=== PATIENT | female | born 1965 | race Caucasian/White ===

== ENCOUNTER 2017-06-02 06:33 | Emergency (ER) | payer BC ==
[2017-06-02 06:54] VITALS: BP 182/95; BMI 32.2
[2017-06-02] MEDS ORDERED: TORADOL 60 MG VIAL ONE (07:07)
[2017-06-02] MEDS ORDERED: TORADOL 60 MG VIAL IM ONE (07:08)
--- NOTE | 2017-06-02 07:12 | DR.GENAD ---
HPI - PCP Primary Care Physician: danni - Complaint/Symptoms Chief Complaint Doctors Comments: Patient c/o left ankle pain, 10/10, sharp, worse with ambulation, twisted when stepped of porch. Chief Complaint:: " I stepped off the deck into a hole. My foot twisted,I fell, and I heard a pop." Self Treatment fo Chief Complaint: none - Source History Provided: Patient - Mode of Arrival Mode of Arrival: Wheelchair - Timing Onset of Chief Complaint: 06/02/17 PMH - PMH Past Medical History: Yes Past Medical History: Hypertension Past Surgical History: Yes Surgical History: Hysterectomy - Family History History of Family Medical Conditions: Yes Family Medical History: Diabetes Mellitus, Cancer, [place], Hypertension - Social History Does patient currently use any type of tobacco product: No Have you used tobacco products in the last 12 months: No Type of Tobacco Use: None Does any household member use tobacco: No Alcohol Use: None Do you use any recreational Drugs:: No Lives With: Spouse Lives Where: Home - infectious screening In the last 2 months have you had wt loss of >10#?: NO Have you had fever, night sweats or hemotysis?: No Have you traveled outside the country in the last 6 months?: No Isolation: Standard ROS - Review of Systems Eyes: No Symptoms Reported ENTM: No Symptoms Reported Respiratoy: No Symptoms Reported Cardiovascular: No Symptoms Reported Gastrointestinal/Abdominal: No Symptoms Reported Genitourinary: No Symptoms Reported Neurological: No Symptoms Reported Musculoskeletal: No Symptoms Reported, Left, Ankle (pain) Integumentary: No Symptoms Reported Hematologic/Lymphatic: No Symptoms Reported Endocrine: No Symptoms Reported Psychiatric: No Symptoms Reported All Other Systems: Reviewed and Negative PE - Vital Signs Vitals: Temperature 97.9 F Pulse Rate 71 Respiratory Rate 22 Blood Pressure 182/95 O2 Sat by Pulse Oximetry 100 - General Limitations: No Limitations General Appearance: Alert, In No Apparent Distress - Head Head Exam: Normal Inspection, Atraumatic - Eyes Eye exam: Normal Appearance, PERRL, EOMI - ENT ENT Exam: Normal Exam External Ear Exam: Normal External Inspection TM/Canal Exam: Bilateral Normal Nose Exam: Normal Nose Exam Mouth Exam: Normal Inspection Throat Exam: Normal Inspection - Neck Neck Exam: Normal Inspection, Full ROM - Chest Chest Inspection: Normal Inspection - Respiratory Respiratory Exam: Normal Lung Sounds Bilat Respiratory Exam: Bilateral Clear to Auscultation - Cardiovascular Cardiovascular Exam: Regular Rate, Normal Rhythm - Abdominal Exam Abdominal Exam: Normal Inspection, Normal Bowel Sounds Abdominal Tenderness: negative: RUQ, RLQ, LUQ, LLQ, Epigastrium, Suprapubic, Diffuse, Mild, Moderate, Severe, Other - Extremities Extremities Exam: Normal Inspection, Full ROM - Back Back Exam: Normal Inspection, Full ROM - Neurologic Neurological Exam: Alert, Oriented X3, CN II-XII Intact - Psychiatric Psychiatric Exam: Normal Affect - Skin Skin Exam: Warm, Dry, Intact ROR - XRAY XRAY Interpreted by: Radiologist (left Ankle: Findings: Minimally displaced lateral malleolus fracture with associated soft tisssue swelling. No significant effusion.. Remaining osseous structures appear intact. The talar dome and ankle mortise appear intact.) - Diagnosis Discharge Problem: Lateral malleolar fracture Qualifiers: Encounter type: initial encounter Fracture type: closed Fracture alignment: nondisplaced Laterality: left Qualified Code(s): S82.65XA - Nondisplaced fracture of lateral malleolus of left fibula, initial encounter for closed fracture - Discharge Plan Condition: Stable - Follow ups/Referrals Follow ups/Referrals: Juliano Sims [Primary Care Provider] - 3 days - Instructions
--- NOTE | 2017-06-02 07:47 | RAD ---
HISTORY: Left lateral ankle pain status post trauma. Study: Three views of the left ankle. Comparison: None. Findings: Minimally displaced lateral malleolus fracture with associated soft tissue swelling. No significant e ffusion. Remaining osseous structures appear intact. The talar dome and ankle mortise appear intact. IMPRESSION: Lateral malleolus fracture as above. Reported By:
== END 2017-06-02 08:16 | disposition home or self-care (01) ==
LOC: ER 06:33
DX: S82.65XA Nondisplaced fracture of lateral malleolus of left fibula, initial encounter for closed fracture (principal); W17.2XXA Fall into hole, initial encounter; Y92.9 Unspecified place or not applicable
CPT/HCPCS: 73610; 96372; 99282; J1885

== ENCOUNTER → 2017-06-27 | Outpatient (CLI) | payer BC ==
[2017-06-02 06:54] VITALS: BP 182/95
--- NOTE | 2017-06-27 10:00 | RAD ---
Examination: Left ankle, three views History: Follow-up fracture Comparison reference 06/13/2017 Findings: There is slight additional widening of the distal fibular fracture line, reflecting bony re sorption. No major displacement or deformity is noted, however. Healing is not complete. There is res idual soft tissue swelling. Impression: Stable subacute lateral malleolar fracture. See above. Reported By:
== END ==
LOC: RAD 08:12
PROVIDERS: ATTEND Specialist
DX: S82.62XS Displaced fracture of lateral malleolus of left fibula, sequela (principal); X58.XXXS Exposure to other specified factors, sequela
CPT/HCPCS: 36415; 73610; 84443

== ENCOUNTER → 2017-07-11 | Outpatient (CLI) | payer BC ==
--- NOTE | 2017-07-11 07:28 | RAD ---
Examination: Left ankle, three views History: Follow-up fracture Comparison reference 06/27/2017 Findings: Again is noted the slightly widened fracture of the distal fibula with overlying soft tissu e swelling. The ankle mortise remains congruent. There is no new abnormality identified. Healing call us is not yet visualized. Impression: Stable appearance of lateral malleolar fracture with no new abnormality identified. Reported By:
== END ==
LOC: RAD 06:58
PROVIDERS: ATTEND Specialist
DX: S82.62XS Displaced fracture of lateral malleolus of left fibula, sequela (principal); X58.XXXS Exposure to other specified factors, sequela
CPT/HCPCS: 73610